=== PATIENT | female | born 1960 | race Caucasian/White ===

== ENCOUNTER → 2017-09-18 | Outpatient (CLI) | payer BC ==
--- NOTE | 2017-09-18 13:32 | RAD ---
Chest, 2 views, 09/18/2017: History: Chest congestion Comparison is made to a study from 03/25/2016. A right-sided transvenous pacemaker remains in place with 2 leads extending into the right heart. The heart size and pulmonary vascularity are normal. No pulmonary infiltrates are seen. There is no evidence of pleural fluid. Mild spurring is present in the spine. IMPRESSION: No acute cardiopulmonary abnormality is detected.
== END | disposition home or self-care (01) ==
LOC: DXRAD 13:07
PROVIDERS: ATTEND Physician Assistant Medical
DX: R09.89 Other specified symptoms and signs involving the circulatory and respiratory systems (principal); M53.84 Other specified dorsopathies, thoracic region; Z95.0 Presence of cardiac pacemaker
CPT/HCPCS: 71020

== ENCOUNTER → 2019-01-05 | Outpatient (CLI) | payer BC ==
--- NOTE | 2019-01-06 08:29 | RAD ---
DATE: 01/05/2019 EXAM: MAMMO RONNY SCREENING BILATERAL HISTORY: Routine screening COMPARISON: Baseline study This study was interpreted with the benefit of Computerized Aided Detection (CAD). Breast Density: SCATTERED The breast parenchyma shows scattered fibroglandular densities. Breast parenchyma level B. FINDINGS: 2-D and 3-D tomosynthesis imaging was performed in CC and MLO projections. No spiculated mass or suspicious breast densities are seen. There are minimal benign type calcifications. No suspicious microcalcifications are evident. Benign-appearing lymph node type densities are present in both axillary regions. IMPRESSION: There is no mammographic evidence of malignancy in either breast. BI-RADS CATEGORY: 2 BENIGN FINDING(S) RECOMMENDED FOLLOW-UP: 12M 12 MONTH FOLLOW-UP PQRS compliance statement: Patient information was entered into a reminder system with a target due date for the next mammogram. Mammography is a sensitive method for finding small breast cancers, but it does not detect them all and is not a substitute for careful clinical examination. A negative mammogram does not negate a clinically suspicious finding and should not result in delay in biopsying a clinically suspicious abnormality. "Our facility is accredited by the [employer] Mammography Program."
== END | disposition home or self-care (01) ==
LOC: MAMMO 14:54
PROVIDERS: ATTEND Physician Assistant
DX: Z12.31 Encounter for screening mammogram for malignant neoplasm of breast (principal)
CPT/HCPCS: 77063; 77067

== ENCOUNTER 2021-11-02 12:22 | Emergency (ER) | payer BC ==
[~2021-11-02] VITALS: Ht 170.2 cm; Wt 95.4 kg
[2021-11-02] MEDS ORDERED: IV NORMAL SALINE 1,000ML 1,000 ML IV ONE (13:15)
[2021-11-02] MEDS ORDERED: BENZONATATE 100 MG CAPSULE. PO ONE (13:15)
[2021-11-02 13:55] LABS: BASO % 1 % (0-3); EOS # 0.1 x10^3/uL (0.0-0.7); EOS % 2 % (0-3); HEMATOCRIT 45.4 % (36.0-47.0); HEMOGLOBIN 15.1 g/dL (12.0-15.5); LYMPH # 1.3 x10^3/uL (1.0-4.8); LYMPH % 24 % (24-48); MEAN CORPUSCULAR HEMOGLOBIN 32 pg (25-35); MEAN CORPUSCULAR HGB CONC 33 g/dL (31-37); MEAN CORPUSCULAR VOLUME 96 fL (79-100); MONO # 0.8 x10^3/uL (0.0-1.1); MONO % 16 % (0-9); NEUT # 3.1 x10^3uL (1.8-7.7); NEUT % 58 % (31-73); PLATELET COUNT 149 x10^3/uL (140-400); RED BLOOD COUNT 4.75 x10^6/uL (3.50-5.40); RED CELL DISTRIBUTION WIDTH 13.6 % (11.5-14.5); WHITE BLOOD COUNT 5.3 x10^3/uL (4.0-11.0)
[2021-11-02 14:08] LABS: POTASSIUM ISTAT 3.6 mmol/L (3.5-5.0)
[2021-11-02 14:09] LABS: HEMOGLOBIN ISTAT 16.3 gm/dL
--- NOTE | 2021-11-02 15:03 | RAD ---
Exam Date: 11/02/2021 1:08 PM XR CHEST 1V Indication: Reason: Cough, congestion / Spl. Instructions: / History: . Comparison: September 18, 2017 FINDINGS/ IMPRESSION: The aorta is calcified. Cardiac pacemaker remains in place. The cardiac silhouette is not enlarged. Mild bibasilar subsegmental atelectasis and/or scarring pers ists. There is no pleural effusion or pneumothorax. Electronically signed by: Dayne Card MD (11/02/2021 3:00 PM) [facility]
[2021-11-02] MEDS ORDERED: BENZ-8 PO (15:25)
[2021-11-02] MEDS ORDERED: ALBU2.5V8 IH (15:25)
--- NOTE | 2021-11-02 15:28 | PHYS DOC ---
Past History Additional Past Medical Histor: cardiac Past Surgical History: Appendectomy, , Pacemaker Alcohol Use: None Adult General Chief Complaint Chief Complaint: SHORTNESS OF BREATH HPI HPI Patient is a 60-year-old female presents to the emergency department concerning ongoing nagging cough and congestion for the past month. Patient reports she has seen her primary care physician twice this month, completed a regimen of doxycycline, Medrol Dosepak, is currently using a albuterol inhaler, started on Augmentin antibiotic regimen 3 days ago, continues to take antibiotics as prescribed, reports her main concern is her cough is not going away and wants something to make her cough stopped. Patient denies chest pain, chest discomfort, denies nasal congestion, reports coughing up yellowish sputum, patient reports she is a everyday cigarette smoker for greater than 45 years, patient denies other physical complaints or physical concerns. Review of Systems Review of Systems 14 body systems of review of systems have been reviewed. See HPI for pertinent positives and negative responses, otherwise all other systems are negative, nonpertinent or noncontributory. Constitutional: Negative except as outlined in HPI above. Skin: Negative except as outlined in HPI above. Eyes: Negative except as outlined in HPI above. HENT: Negative except as outlined in HPI above. Respiratory: Negative except as outlined in HPI above. Cardiovascular: Negative except as outlined in HPI above. GI: Negative except as outlined in HPI above. : Negative except as outlined in HPI above. Musculoskeletal: Negative except as outlined in HPI above. Integument: Negative except as outlined in HPI above. Neurologic: Negative except as outlined in HPI above. Endocrine: Negative except as outlined in HPI above. Lymphatic: Negative except as outlined in HPI above. Psychiatric: Negative except as outlined in HPI above. Current Medications Current Medications Current Medications Medications (Trade) Dose Ordered Sig/Jillian Start Time Stop Time Status Last Admin Dose Admin Benzonatate (Tessalon Perle) 100 mg 1X ONCE 11/02/21 13:15 11/02/21 13:22 DC 11/02/21 13:15 100 MG Sodium Chloride 1,000 ml @ 1,000 mls/hr 1X ONCE 11/02/21 13:15 11/02/21 14:14 DC 11/02/21 13:15 1,000 MLS/HR Allergies Allergies Allergies Coded Allergies Type Severity Reaction Last Updated Verified morphine Allergy Unknown 11/02/21 Yes Physical Exam Physical Exam Constitutional: Well developed, well nourished, no acute distress, non-toxic appearance. 60-year-old female in no apparent distress. HENT: Normocephalic, atraumatic. Eyes: Conjunctiva normal, no discharge. Neck: Normal range of motion, no stridor. Cardiovascular: No cyanosis appreciated, distal cap refill less than 2 seconds. Lungs & Thorax: Patient is in no respiratory distress, no audible adventitious lung sounds appreciated. Abdomen: Nontender, no abnormalities noted. Skin: Warm, dry, no erythema, no rash. Back: No tenderness, no deformities. Extremities: No tenderness, no cyanosis, no clubbing, ROM intact, no edema. Neurologic: Alert and oriented X 3, normal motor function, normal sensory function, no focal deficits noted. Psychologic: Affect normal, judgement normal, mood normal. Current Patient Data Vital Signs Vital Signs Date Time Temp Pulse Resp B/P (MAP) Pulse Ox O2 Delivery O2 Flow Rate FiO2 11/02/21 12:34 99.6 89 16 139/86 (103) 95 Room Air Lab Results Laboratory Tests Test 11/02/21 13:22 White Blood Count 5.3 x10^3/uL (4.0-11.0) Red Blood Count 4.75 x10^6/uL (3.50-5.40) Hemoglobin 15.1 g/dL (12.0-15.5) POC Hemoglobin 16.3 gm/dL Hematocrit 45.4 % (36.0-47.0) POC Hematocrit 48 % Mean Corpuscular Volume 96 fL (79-100) Mean Corpuscular Hemoglobin 32 pg (25-35) Mean Corpuscular Hemoglobin Concent 33 g/dL (31-37) Red Cell Distribution Width 13.6 % (11.5-14.5) Platelet Count 149 x10^3/uL (140-400) Neutrophils (%) (Auto) 58 % (31-73) Lymphocytes (%) (Auto) 24 % (24-48) Monocytes (%) (Auto) 16 % (0-9) H Eosinophils (%) (Auto) 2 % (0-3) Basophils (%) (Auto) 1 % (0-3) Neutrophils # (Auto) 3.1 x10^3uL (1.8-7.7) Lymphocytes # (Auto) 1.3 x10^3/uL (1.0-4.8) Monocytes # (Auto) 0.8 x10^3/uL (0.0-1.1) Eosinophils # (Auto) 0.1 x10^3/uL (0.0-0.7) Basophils # (Auto) 0.0 x10^3/uL (0.0-0.2) D-Dimer (Neena) 0.47 mg/L (0.00-0.50) POC Sodium 139 mmol/L (135-145) POC Potassium 3.6 mmol/L (3.5-5.0) POC Chloride 100 mmol/L (98-110) POC Total CO2 26 mmol/L (23-32) Anion Gap 18 mmol/L (6-14) H POC Blood Urea Nitrogen 16 mg/dL (8-26) POC Creatinine 0.8 mg/dL (0.5-1.4) Glucose Level 128 mg/dL (60-99) H POC Ionized Calcium (Chloe) 1.14 mmol/L (1.13-1.32) EKG EKG [] Radiology/Procedures Radiology/Procedures STATUS: REG ER ORD. PHYSICIAN: JODY ORTEGA APRN REASON: Cough, congestion PROCEDURE: CHEST AP ONLY Exam Date: 11/02/2021 1:08 PM XR CHEST 1V Indication: Reason: Cough, congestion / Spl. Instructions: / History: . Comparison: September 18, 2017 FINDINGS/ IMPRESSION: The aorta is calcified. Cardiac pacemaker remains in place. The cardiac silhouette is not enlarged. Mild bibasilar subsegmental atelectasis and/or scarring persists. There is no pleural effusion or pneumothorax. Electronically signed by: Barak Card MD (11/02/2021 3:00 PM) [facility] DICTATED AND SIGNED BY: BARAK CARD MD DATE: 11/02/21 1456 Heart Score C/O Chest Pain: No Risk Factors: Risk Factors: DM, Current or recent (<one month) smoker, HTN, HLP, family history of CAD, obesity. Risk Scores: Risk Factors: DM, Current or recent (<one month) smoker, HTN, HLP, family history of CAD, obesity. Course & Med Decision Making Course & Med Decision Making Pertinent Labs and Imaging studies reviewed. (See chart for details) 60-year-old female, vital signs reviewed, presents emergency department concerning ongoing cough for the past month. Physical examination is u nremarkable, will give Tessalon Perles for reported cough, will order chest x- ray, D-dimer, CBC, CMP. D-dimer negative, CBC and basic metabolic profile negative for concerning findings, chest x-ray shows atelectasis versus scarring, this is most likely re lated to 45+ year history of cigarette smoking, discussed findings with patient, patient reports she has not cough since taking cough medicine in the ED today, discussed smoking cessation, strict follow-up with primary care soon, return to ER precautions or concerns, patient gave verbal understanding of and is amenable to ED discharge planning. Discussed with the patient all findings and diagnostic testing as well as the need to follow-up with their primary care provider for further evaluation and treatment or return to the ED if any new or worsening symptoms. Strict return precautions were also discussed at length, the patient voiced understanding and agreement with the discharge planning. The patient was nontoxic in appearance, in no apparent distress, and hemodynamically stable at the time of disposition. Dragon Disclaimer Dragon Disclaimer This electronic medical record was generated, in whole or in part, using a voice recognition dictation system. Departure Departure: Impression: Primary Impression: Cough Additional Impression: Cigarette smoker motivated to quit Disposition: 01 HOME / SELF CARE / HOMELESS Condition: GOOD Referrals: CHELSEA QUILES (PCP) Patient Instructions: Cough, Adult Additional Instructions: You were seen today in the emergency department for an ongoing cough. Lab work was drawn today that did not show concerning signs of infection or blood clots, your chest x-ray did show some scarring which is most likely related to your long history of cigarette smoking. Please continue to take your antibiotics and medications as prescribed by your primary care physician, as we discussed I am prescribing you a albuterol inhaler as the one you have is almost out of medication, I am also prescribing you a cough medication that he can take up to 3 times a day as needed for cough. We have discussed smoking cessation, please follow-up with your primary care physician for ongoing smoking cessation management, there are many medications and stop smoking management plans that people have found very successful in their road to stopping smoking. I encourage you to see your primary care physician this week to discuss smoking cessation, please let Dr. Quiles know of the medications you were started on today in the emergency department, return to the emergency department for worsening symptoms or other concerns. Thank you for visiting our Emergency Department. It was a pleasure taking care of you today in the emergency department and we appreciate you trusting us with your care. If any additional problems come up don't hesitate to return to visit us. Please follow up with your primary care provider so they can plan additional care if needed and know about the problem that you had. If symptoms worsen come back to the Emergency Department. Any concerning symptoms that start such as chest pain, shortness of air, weakness or numbness on one side of the body, running high fevers or any other concerning symptoms return to the ER. EMERGENCY DEPARTMENT GENERAL DISCHARGE INSTRUCTIONS Thank you for coming to [facility] (ED) today and trusting us with you care. We trust that you had a positivie experience in our Emergency Department. If you wish to speak to the department management, you may call the director at [phone]. YOUR FOLLOW UP INSTRUCTIONS ARE FOLLOWS: 1. Do you have a private Doctor? If you do not have a private doctor, please ask for a resource list of physicians or clinics that may be able to assist you with follow up care. 2. The Emergency Physician has interpreted your x-rays. The X-Ray specialist will also review them. If there is a change in the findings, you will be notified in 48 hours when at all possible. 3. A lab test or culture has been done, your results will be reviewed and you will be notified if you need a change in treatment. ADDITIONAL INSTRUCTIONS AND INFORMATION: 1. Your care today has been supervised by a physician who is specially trained in emergency care. Many problems require more than one evaluation for a complete diagnosis and treatment. We recommend that you schedule your follow up appointment as recommended to ensure complete treatment of you illness or injury. If you are unable to obtain follow up care and continue to have a problem, or if your condition worsens, we recommend that you return to the ED. 2. We are not able to safely determine your condition over the phone nor are we able to give sound medical advice over the phone. For these safety reasons, if you call for medical advice we will ask you to come to the ED for further evaluation. 3. If you have any questions regarding these discharge instructions please call the ED at [phone]. SAFETY INFORMATION: In the interest of safety, wellness, and injury prevention; we encourage you to wear your sealbelt, if you smoke; quite smoking, and we encourage family to use a protective helmet for bicycling and other sporting events that present an increased risk for head injury. IF YOUR SYMPTOMS WORSEN OR NEW SYMPTOMS DEVELOP, OR YOU HAVE CONCERNS ABOUT YOUR CONDITION; OR IF YOUR CONDITION WORSENS WHILE YOU ARE WAITING FOR YOUR FOLLOW UP APPOINTMENT; EITHER CONTACT YOUR PRIMARY CARE DOCTOR, THE PHYSICIAN WHOSE NAME AND NUMBER YOU WERE GIVEN, OR RETURN TO THE ED IMMEDIATELY. Scripts Albuterol Sulfate (PROAIR HFA INHALER) 8.5 Gm Hfa.aer.ad 2 PUFF IH PRN Q4-6HRS PRN for wheezing for 21 Days, #1 INHALER 0 Refills Prov: JODY ORTEGA CORPORATE TRAINER 11/02/21 Benzonatate (BENZONATATE) 100 Mg Capsule 1 CAP PO TID for cough, #30 CAP 0 Refills Prov: JODY ORTEGA CORPORATE TRAINER 11/02/21 Problem Qualifiers JODY ORTEGA APRN Nov 02, 2021 15:28
[2021-11-02 15:32] VITALS: BP 135/90
[2021-11-02 16:55] LABS: CALCIUM 8.4 mg/dL (8.5-10.1); CREATININE 0.8 mg/dL (0.6-1.0); GFR 73.4; POTASSIUM 3.7 mmol/L (3.5-5.1)
[2021-11-02 17:02] LABS: ALBUMIN 3.3 g/dL (3.4-5.0); ALBUMIN/GLOBULIN RATIO 0.9 (1.0-1.7); TOTAL BILIRUBIN 0.2 mg/dL (0.2-1.0)
== END 2021-11-02 15:40 | disposition home or self-care (01) ==
LOC: ER 12:22
DX: R05.9 Cough, unspecified (principal); R09.81 Nasal congestion; F17.210 Nicotine dependence, cigarettes, uncomplicated; Z88.5 Allergy status to narcotic agent
CPT/HCPCS: 36415; 71045; 80047; 80053; 85025; 85379; 96360; 99284; J7030